=== PATIENT | male | born 1995 | race Caucasian/White ===

== ENCOUNTER 2016-11-03 11:27 | Emergency (ER) | payer OTHER ==
[~2016-11-03] VITALS: Ht 177.8 cm; Wt 75.4 kg
[2016-11-03] MEDS ORDERED: DIPH,PERTUSS(ACELL),TET VAC/PF 0.5 ML IM-VACC ONE ×2 (12:00→12:12)
[2016-11-03] MEDS ORDERED: ONDANSETRON 2MG/ML, 2ML IVPush ONE (12:00)
[2016-11-03] MEDS ORDERED: MORPHINE SULFATE 4 MG/ML, 1ML IVPush PRN (12:00)
[2016-11-03] MEDS ORDERED: CEFAZOLIN PMX 1GM/50ML 50 ML IVPB ONE (12:00)
[2016-11-03] MEDS ORDERED: SODIUM CHLORIDE FLUSH 10ML SYR IVF ONE (12:00)
[2016-11-03] MEDS ORDERED: LIDOCAINE 1%, 20ML ONE (12:12)
[2016-11-03] MEDS ORDERED: ONDANSETRON 2MG/ML, 2ML ONE (12:32)
[2016-11-03] MEDS ORDERED: CEFAZOLIN PMX 1GM/50ML 50 ML ONE (12:32)
[2016-11-03] MEDS ORDERED: MORPHINE SULFATE 4 MG/ML, 1ML ONE (12:32)
[2016-11-03] MEDS ORDERED: BACITRACIN ZINC OINT 500U/GM, 0.9 GM ONE (13:25)
[2016-11-03 14:15] VITALS: BP 132/68
== END 2016-11-03 14:17 | disposition home or self-care (01) ==
LOC: ED 14:11
DX: S61.442A Puncture wound with foreign body of left hand, initial encounter (principal); W45.0XXA Nail entering through skin, initial encounter; Y93.89 Activity, other specified; Y92.89 Other specified places as the place of occurrence of the external cause; Y99.8 Other external cause status
CPT/HCPCS: 73130; 90471; 90715; 96365; 96375; 99284; J0690; J2405